=== PATIENT | male | born 1980 | race Two or more races ===

== ENCOUNTER 2023-04-06 15:32 | Emergency (ER) | payer BC ==
[~2023-04-06] VITALS: Ht 177.8 cm; Wt 88.5 kg
--- NOTE | 2023-04-06 15:35 | NUR ---
EMT AT BEDSIDE FOR EKG
--- NOTE | 2023-04-06 15:40 | NUR ---
DR CHARLTON AT BED SIDE FOR EVAL
[2023-04-06] MEDS ORDERED: KETOROLAC TROMETHAMINE INJ 30 MG/ML VIAL IV ONE (16:00)
[2023-04-06] MEDS ORDERED: AZITHROMYCIN 500 MG in IV D5W 250 ML IV ONE (16:00)
--- NOTE | 2023-04-06 16:00 | NUR ---
IV INSERTED 20G AT RT ANIBAL NICHOLS , SENT TO LAB
--- NOTE | 2023-04-06 16:00 | NUR ---
URINE COLLECTED, SENT TO LAB
[2023-04-06] MEDS ORDERED: KETOROLAC TROMETHAMINE 15 MG/ML VIAL ONE (16:04)
[2023-04-06 16:09] LABS: BASOPHILS % (AUTO) 0.6 % (0.0-2.0); HEMATOCRIT 51 % (39-51); LYMPHOCYTES # (AUTO) 1.8 K/uL (0.8-4.8); MEAN CORPUSCULAR HGB CONC 33 g/dl (31.0-36.0); MEAN CORPUSCULAR VOLUME 87 fL (80-96); MONOCYTES # (AUTO) 0.6 K/uL (0.1-1.30); MONOCYTES % (AUTO) 8.2 % (2.0-12.0); NEUTROPHILS # (AUTO) 5.2 K/uL (1.8-8.9); NEUTROPHILS % (AUTO) 67.2 % (43.0-81.0); PLATELET COUNT (AUTO) 209 K/uL (150-450); WHITE BLOOD COUNT (AUTO) 7.7 K/uL (4.3-11.0)
[2023-04-06 16:28] LABS: CALCIUM, SERUM 9.6 mg/dL (8.5-10.1); CARBON DIOXIDE 25 mmol/L (21-32); CHLORIDE 101 mmol/L (98-107); GLUCOSE 104 mg/dL (74-106); POTASSIUM 3.7 mmol/L (3.5-5.1); SODIUM SERUM 137 mmol/L (136-145); UREA NITROGEN, BLOOD 16 mg/dL (7-18)
[2023-04-06] MEDS ORDERED: BENZ-13 PO (19:02)
[2023-04-06] MEDS ORDERED: AZIT500T PO (19:02)
[2023-04-06] MEDS ORDERED: GUAI1TBM19 PO (19:02)
--- NOTE | 2023-04-06 19:20 | NUR ---
REPORT GIVEN TO GRECIA MADRID FOR [facility]ADDY
--- NOTE | 2023-04-06 19:55 | NUR ---
Patient discharged to home in stable condition. Written and verbal after care instructions given. Patient verbalizes understanding of instruction. IV removed. Catheter intact and site benign. Pressure and 4x4 applied to site. No bleeding noted.
[2023-04-06 19:59] VITALS: BP 141/89; TEMP 98.5
== END 2023-04-06 19:55 | disposition home or self-care (01) ==
LOC: EDSEX 15:32 → ER 15:47
DX: J06.9 Acute upper respiratory infection, unspecified (principal); B96.89 Other specified bacterial agents as the cause of diseases classified elsewhere; Z79.2 Long term (current) use of antibiotics; Z79.899 Other long term (current) drug therapy
CPT/HCPCS: 99285; 96365; 71045; 96375; 93005 ×3; 85025; 80048; 36415; 84484; J0456; J1885; J7060